=== PATIENT | male | born 1965 | race Caucasian/White ===

== ENCOUNTER 2018-03-23 17:43 | Observation (INO) | payer BC ==
[2018-03-23] MEDS ORDERED: Sodium Chloride 0.9% 1,000 ML IV ONE (17:46)
[2018-03-23] MEDS ORDERED: Aspirin 81 MG Tab.Chew PO ONE (17:46)
[2018-03-23] MEDS ORDERED: Nitroglycerin 0.4 MG Tab.SL SL PRN (17:46)
--- NOTE | 2018-03-23 17:50 | EDM.PDOC ---
ED HPI GENERAL MEDICAL PROBLEM - General Chief Complaint: Chest Pain Stated Complaint: CHEST PAIN, SHORTNESS OF BREATH Time Seen by Provider: 03/23/18 17:45 Source of Information: Reports: Patient History Limitations: Reports: No Limitations - History of Present Illness INITIAL COMMENTS - FREE TEXT/NARRATIVE: HISTORY AND PHYSICAL: History of present illness: Patient is a 52-year-old male who presents to the emergency room today with complaints of midsternal chest pain and shortness of breath. He states he was doing yardwork when he started to have shortness of breath, and generalized midsternal chest pain, intermittent tingling to "my upper body" and diaphoresis. He denies any fever, chills, cough or headache. He denies any abdominal pain, nausea, vomiting, diarrhea or constipation. States prior to this he was feeling well and had no concerns or complaints. Has been eating and drinking appropriately. Pain is very physically active; runs daily. He denies any previous history of cardiac disease. No history of smoking. No familial history of heart disease. Review of systems: As per history of present illness and below otherwise all systems reviewed and negative. Past medical history: As per history of present illness and as reviewed below otherwise noncontributory. Surgical history: As per history of present illness and as reviewed below otherwise noncontributory. Social history: No reported history of drug or alcohol abuse. Family history: As per history of present illness and as reviewed below otherwise noncontributory. Physical exam: General: Well-developed and well-nourished 52-year-old male. Alert and oriented. Mildly anxious, nontoxic appearing and in no acute distress. HEENT: Atraumatic, normocephalic, pupils equal and reactive bilaterally, negative for conjunctival pallor or scleral icterus, mucous membranes moist, throat clear, neck supple, nontender, trachea midline. No drooling or trismus noted. No meningeal signs Lungs: Clear to auscultation, breath sounds equal bilaterally, chest nontender. Heart: S1S2, regular rate and rhythm without overt murmur Abdomen: Soft, nondistended, nontender. Negative for masses or hepatosplenomegaly. Negative for costovertebral tenderness. Pelvis: Stable nontender. Genitourinary: Deferred. Rectal: Deferred. Skin: Intact, warm, dry. No lesions or rashes noted. Extremities: Atraumatic, negative for cords or calf pain. Neurovascular unremarkable. Neuro: Awake, alert, oriented. Cranial nerves II through XII unremarkable. Cerebellum unremarkable. Motor and sensory unremarkable throughout. Exam nonfocal. Notes: Pain 4/10. 1 tab Nitro given, dropped his blood pressure. Did not improve his pain. Fluids running. Morphine was offered, he declined. He is willing to take Toradol IV. Pain 3/10. Chest xray shows no evidence of pneumonia or infiltrate; normal. Pain is currently a 3/10, he will take the Morphine. Pain is 0/[address] Moss was consult did on this case. He is agreeable to keeping this patient for observation telemetry.. Diagnostics: CBC, CMP, troponin, EKG, chest x-ray Therapeutics: IV fluid, aspirin, nitroglycerin Impression: Chest Pain r/o [place] Dehydration Plan: Observation admission with telemetry Definitive disposition and diagnosis as appropriate pending reevaluation and review of above. Onset: Today Duration: Minutes: Location: Reports: Chest Chest Pain Score (Numeric/FACES): 4 - Related Data Allergies Allergy/AdvReac Type Severity Reaction Status Date / Time No Known Allergies Allergy Verified 03/23/18 17:48 Home Meds: Home Meds Canagliflozin [Invokana] 100 mg PO DAILY 02/20/14 [History] Lisinopril [Zestril] 20 mg PO DAILY 02/20/14 [History] SitaGLIPtin [Januvia] 100 mg PO DAILY 03/23/18 [History] Past Medical History HEENT History: Reports: Impaired Vision Other HEENT History: glasses Cardiovascular History: Reports: Hypertension Endocrine/Metabolic History: Reports: Diabetes, Type II - Past Surgical History Musculoskeletal Surgical History: Reports: Joint Replacement Social & Family History - Family History Family Medical History: Noncontributory - Living Situation & Occupation Living situation: Reports: Occupation: Employed ED ROS GENERAL - Review of Systems Review Of Systems: ROS reveals no pertinent complaints other than HPI. ED EXAM, GENERAL - Physical Exam Exam: See Below (See dictation) Course - Vital Signs Last Recorded V/S: Last Vital Signs Temp 97.2 F 03/23/18 17:45 Pulse 81 03/23/18 19:21 Resp 18 03/23/18 19:21 BP 110/69 03/23/18 19:21 Pulse Ox 95 06/03/18 19:21 - Orders/Labs/Meds Orders: Active Orders 24 hr Category Date Time Status Admission Status [Patient Status] [ADT] Stat ADT 03/23/18 19:16 Ordered Blood Glucose Check, Bedside [RC] TIDMEALS Care 03/23/18 19:37 Active Cardiac Monitoring [RC] . DIRECTED Care 03/23/18 19:21 Ordered EKG Documentation Completion [RC] STAT Care 03/23/18 17:46 Active Oxygen Therapy [RC] PRN Care 03/23/18 19:37 Active Up ad Juli [RC] ASDIRECTED Care 03/23/18 19:37 Active VTE/DVT Education [RC] PER UNIT ROUTINE Care 03/23/18 19:37 Active Vital Signs [RC] Q4H Care 03/23/18 19:37 Active [employer] Diet [DIET] Diet 03/23/18 Breakfast Active Chest 1V Frontal [CR] Stat Exams 03/23/18 17:46 Taken BASIC METABOLIC PANEL,BMP [CHEM] AM Lab 03/24/18 05:11 Ordered CBC WITH AUTO DIFF [HEME] AM Lab 03/24/18 05:11 Ordered TROPONIN I [CHEM] Q6H Lab 03/23/18 23:55 Ordered TROPONIN I [CHEM] Q6H Lab 03/24/18 05:55 Ordered Heparin Sodium Med 03/23/18 19:45 Active 5,000 units SUBCUT Q8H Insulin Aspart [NovoLOG] Med 03/24/18 07:30 Active See Protocol SUBCUT TIDAC Nitroglycerin [Nitrostat] Med 03/23/18 17:46 Active 0.4 mg SL Q5M PRN Sodium Chloride 0.9% [Normal Saline] 1,000 ml Med 03/23/18 19:45 Active IV ASDIRECTED Sequential Compression Device [OM.PC] Per Unit Routine Oth 03/23/18 19:38 Ordered Resuscitation Status Routine Resus Stat 03/23/18 19:37 Ordered Medication Orders Heparin Sodium (Porcine) (Heparin Sodium) 5,000 units SUBCUT Q8H J[facility] Sodium Chloride (Normal Saline) 1,000 mls @ 125 mls/hr IV ASDIRECTED JAYRO Insulin Aspart (Novolog) 0 unit SUBCUT TIDAC JAYRO; Protocol Nitroglycerin (Nitrostat) 0.4 mg SL Q5M PRN PRN Reason: Chest Pain Last Admin: 03/23/18 17:54 Dose: 0.4 mg Labs: Laboratory Tests 03/23/18 03/23/18 Range/Units 17:58 17:58 WBC 14.69 H (4.0-11.0) K/uL RBC 5.41 (4.50-5.90) M/uL Hgb 16.8 (13.0-17.0) g/dL Hct 47.1 (38.0-50.0) % MCV 87.1 (80.0-98.0) fL MCH 31.1 (27.0-32.0) pg MCHC 35.7 (31.0-37.0) g/dL RDW Std Deviation 40.5 (28.0-62.0) fl RDW Coeff of Jose 13 (11.0-15.0) % Plt Count 212 (150-400) K/uL MPV 10.90 (7.40-12.00) fL Neut % (Auto) 76.6 (48.0-80.0) % Lymph % (Auto) 11.6 L (16.0-40.0) % [place] % (Auto) 11.4 (0.0-15.0) % Eos % (Auto) 0.1 (0.0-7.0) % Baso % (Auto) 0.3 (0.0-1.5) % Neut # (Auto) 11.2 H (1.4-5.7) K/uL Lymph # (Auto) 1.7 (0.6-2.4) K/uL [place] # (Auto) 1.7 H (0.0-0.8) K/uL Eos # (Auto) 0.0 (0.0-0.7) K/uL Baso # (Auto) 0.1 (0.0-0.1) K/uL Nucleated RBC % 0.0 /100WBC Nucleated RBCs # 0 K/uL Sodium 133 L (136-148) mmol/L Potassium 4.2 (3.5-5.1) mmol/L Chloride 99 (98-107) mmol/L Carbon Dioxide 17.6 L (21.0-32.0) mmol/L BUN 36 H (7.0-18.0) mg/dL Creatinine 2.0 H (0.8-1.3) mg/dL Est Cr Clr Drug Dosing 49.09 mL/min Estimated GFR (MDRD) 35.0 ml/min Glucose 267 H (74-106) mg/dL Calcium 10.4 H (8.5-10.1) mg/dL Total Bilirubin 1.6 H (0.2-1.0) mg/dL AST 24 (15-37) IU/L ALT 30 (14-63) IU/L Alkaline Phosphatase 72 (46-116) U/L Troponin I < 0.050 (0.000-0.056) ng/mL Total Protein 7.7 (6.4-8.2) g/dL Albumin 4.6 (3.4-5.0) g/dL Globulin 3.1 (2.0-3.5) g/dL Albumin/Globulin Ratio 1.5 (1.3-2.8) Meds: Medications Generic Name Dose Route Start Last Admin Trade Name Freq PRN Reason Stop Dose Admin Heparin Sodium (Porcine) 5,000 units 03/23/18 19:45 Heparin Sodium SUBCUT Q8H [facility] Sodium Chloride 1,000 mls @ 125 mls/hr 03/23/18 19:45 Normal Saline IV ASDIRECTED [facility] Insulin Aspart 0 unit 03/24/18 07:30 Novolog SUBCUT TIDAC [facility] Protocol Nitroglycerin 0.4 mg 03/23/18 17:46 03/23/18 17:54 Nitrostat SL 0.4 mg Q5M PRN Administration Chest Pain Discontinued Medications Generic Name Dose Route Start Last Admin Trade Name Freq PRN Reason Stop Dose Admin Aspirin 324 mg 03/23/18 17:46 03/23/18 17:52 Aspirin PO 03/23/18 17:47 324 mg ONETIME ONE Administration Sodium Chloride 1,000 mls @ 999 mls/hr 03/23/18 17:46 03/23/18 17:54 Normal Saline IV 03/23/18 18:46 999 mls/hr STAT ONE Administration Ketorolac Tromethamine 30 mg 03/23/18 18:16 03/23/18 18:32 Toradol IVPUSH 03/23/18 18:17 30 mg ONETIME ONE Administration Morphine Sulfate 2 mg 03/23/18 18:02 03/23/18 18:19 Morphine IVPUSH 03/23/18 18:03 Not Given ONETIME ONE Morphine Sulfate 2 mg 03/23/18 19:16 03/23/18 19:19 Morphine IVPUSH 03/23/18 19:17 2 mg ONETIME ONE Administration Departure - Departure Time of Disposition: 19:42 Disposition: Refer to Observation Clinical Impression: Chest pain, rule out acute myocardial infarction, Dehydration Referrals: Perry Ring MD [Primary Care Provider] - Forms: ED Department Discharge - My Orders Last 24 Hours: My Active Orders 03/23/18 17:46 EKG Documentation Completion [RC] STAT Chest 1V Frontal [CR] Stat Nitroglycerin [Nitrostat] 0.4 mg SL Q5M PRN 03/23/18 19:16 Admission Status [Patient Status] [ADT] Stat 03/23/18 19:21 Cardiac Monitoring [RC] . DIRECTED - Assessment/Plan Last 24 Hours: My Active Orders 03/23/18 17:46 EKG Documentation Completion [RC] STAT Chest 1V Frontal [CR] Stat Nitroglycerin [Nitrostat] 0.4 mg SL Q5M PRN 03/23/18 19:16 Admission Status [Patient Status] [ADT] Stat 03/23/18 19:21 Cardiac Monitoring [RC] . DIRECTED
[2018-03-23] MEDS ORDERED: Morphine 2 MG/ML Syringe IVPUSH ONE ×2 (18:02→19:16)
[2018-03-23] MEDS ORDERED: Ketorolac 30 MG/ML SDV IVPUSH ONE (18:16)
[2018-03-23 19:04] LABS: CHLORIDE,CL 99 mmol/L (98-107); SODIUM,NA 133 mmol/L (136-148)
--- NOTE | 2018-03-23 19:43 | PCM.HP ---
H&P History of Present Illness - General Admit Problem/Dx: Admission Diagnosis/Problem Admission Diagnosis/Problem Chest pain, rule out acute myocardial infarction - History of Present Illness Initial Comments - Free Text/Narative: 52 yo male who presents with four hour history of chest pain. PAtient reports he developed substernal chest pressure with associated symptoms of shortness of breath and diaphoresis. The pain occured while he was exerting himself more than normal by digging post holes. Laying down made it worse. HE was seen in the ED and given ASA, nitro paste, and morphine which resolved his pain. Initial EKG and troponin were negative for signs of ischemia Chest Pain Score (Numeric/FACES): 4 - Related Data Allergies/Adverse Reactions: Allergies Allergy/AdvReac Type Severity Reaction Status Date / Time No Known Allergies Allergy Verified 03/23/18 17:48 Home Medications: Home Meds Canagliflozin [Invokana] 100 mg PO DAILY 02/20/14 [History] Lisinopril [Zestril] 20 mg PO DAILY 02/20/14 [History] SitaGLIPtin [Januvia] 100 mg PO DAILY 03/23/18 [History] Past Medical History HEENT History: Reports: Impaired Vision Other HEENT History: glasses Cardiovascular History: Reports: Hypertension Endocrine/Metabolic History: Reports: Diabetes, Type II - Past Surgical History Musculoskeletal Surgical History: Reports: Joint Replacement Social & Family History - Family History Family Medical History: Noncontributory - Tobacco Use Smoking Status *Q: Never Smoker - Caffeine Use Caffeine Use: Reports: None - Recreational Drug Use Recreational Drug Use: No - Living Situation & Occupation Living situation: Reports: Occupation: Employed H&P Review of Systems - Review of Systems: Review Of Systems: ROS reveals no pertinent complaints other than HPI. Exam - Vital Signs Vital Signs: Last Vital Signs Temp 36.2 C 03/23/18 17:45 Pulse 81 03/23/18 19:21 Resp 18 03/23/18 19:21 BP 110/69 03/23/18 19:21 Pulse Ox 95 03/23/18 19:21 Weight: 100.698 kg - Exam General: Alert, Oriented HEENT: Mucosa Moist & [place] Lungs: Clear to Auscultation, Normal Respiratory Effort Cardiovascular: Regular Rate, Regular Rhythm, Normal S1, Normal S2. No: Systolic Murmur, Diastolic Murmur GI/Abdominal Exam: Normal Bowel Sounds, Soft, Non-Tender, No Distention Extremities: Non-Tender, No Pedal Edema Skin: Warm, Dry, Intact Neurological: No: Focal Deficit - Patient Data Lab Results Last 24 hrs: Laboratory Results - last 24 hr 03/23/18 03/23/18 Range/Units 17:58 17:58 WBC 14.69 H (4.0-11.0) K/uL RBC 5.41 (4.50-5.90) M/uL Hgb 16.8 (13.0-17.0) g/dL Hct 47.1 (38.0-50.0) % MCV 87.1 (80.0-98.0) fL MCH 31.1 (27.0-32.0) pg MCHC 35.7 (31.0-37.0) g/dL RDW Std Deviation 40.5 (28.0-62.0) fl RDW Coeff of Jose 13 (11.0-15.0) % Plt Count 212 (150-400) K/uL MPV 10.90 (7.40-12.00) fL Neut % (Auto) 76.6 (48.0-80.0) % Lymph % (Auto) 11.6 L (16.0-40.0) % [place] % (Auto) 11.4 (0.0-15.0) % Eos % (Auto) 0.1 (0.0-7.0) % Baso % (Auto) 0.3 (0.0-1.5) % Neut # (Auto) 11.2 H (1.4-5.7) K/uL Lymph # (Auto) 1.7 (0.6-2.4) K/uL [place] # (Auto) 1.7 H (0.0-0.8) K/uL Eos # (Auto) 0.0 (0.0-0.7) K/uL Baso # (Auto) 0.1 (0.0-0.1) K/uL Nucleated RBC % 0.0 /100WBC Nucleated RBCs # 0 K/uL Sodium 133 L (136-148) mmol/L Potassium 4.2 (3.5-5.1) mmol/L Chloride 99 (98-107) mmol/L Carbon Dioxide 17.6 L (21.0-32.0) mmol/L BUN 36 H (7.0-18.0) mg/dL Creatinine 2.0 H (0.8-1.3) mg/dL Est Cr Clr Drug Dosing 49.09 mL/min Estimated GFR (MDRD) 35.0 ml/min Glucose 267 H (74-106) mg/dL Calcium 10.4 H (8.5-10.1) mg/dL Total Bilirubin 1.6 H (0.2-1.0) mg/dL AST 24 (15-37) IU/L ALT 30 (14-63) IU/L Alkaline Phosphatase 72 (46-116) U/L Troponin I < 0.050 (0.000-0.056) ng/mL Total Protein 7.7 (6.4-8.2) g/dL Albumin 4.6 (3.4-5.0) g/dL Globulin 3.1 (2.0-3.5) g/dL Albumin/Globulin Ratio 1.5 (1.3-2.8) Result Diagrams: 03/23/18 17:58 03/23/18 17:58 Problem List Initiated/Reviewed/Updated: Yes Orders Last 24hrs: Active Orders 24 hr Category Date Time Status Admission Status [Patient Status] [ADT] Stat ADT 03/23/18 19:16 Active Blood Glucose Check, Bedside [RC] TIDMEALS Care 03/23/18 19:37 Ordered Cardiac Monitoring [RC] . DIRECTED Care 03/23/18 19:21 Active EKG Documentation Completion [RC] STAT Care 03/23/18 17:46 Active Oxygen Therapy [RC] PRN Care 03/23/18 19:37 Ordered Up ad Juli [RC] ASDIRECTED Care 03/23/18 19:37 Ordered VTE/DVT Education [RC] PER UNIT ROUTINE Care 03/23/18 19:37 Ordered Vital Signs [RC] Q4H Care 03/23/18 19:37 Ordered [employer] [employer] Diet [DIET] Diet 03/23/18 Breakfast Ordered Chest 1V Frontal [CR] Stat Exams 03/23/18 17:46 Taken BASIC METABOLIC PANEL,BMP [CHEM] AM Lab 03/24/18 05:11 Ordered CBC WITH AUTO DIFF [HEME] AM Lab 03/24/18 05:11 Ordered TROPONIN I [CHEM] Q6H Lab 03/23/18 23:55 Ordered TROPONIN I [CHEM] Q6H Lab 03/24/18 05:55 Ordered Heparin Sodium Med 03/23/18 19:45 Ordered 5,000 units SUBCUT Q8H Insulin Aspart [NovoLOG] Med 03/24/18 07:30 Ordered See Protocol SUBCUT TIDAC Nitroglycerin [Nitrostat] Med 03/23/18 17:46 Active 0.4 mg SL Q5M PRN Sodium Chloride 0.9% @ 125 MLS/HR (1000ml) Med 03/23/18 19:45 Ordered Sodium Chloride 0.9% [Normal Saline] 1,000 ml IV ASDIRECTED Sequential Compression Device [OM.PC] Per Unit Routine Oth 03/23/18 19:38 Ordered Resuscitation Status Routine Resus Stat 03/23/18 19:37 Ordered Medication Orders Nitroglycerin (Nitrostat) 0.4 mg SL Q5M PRN PRN Reason: Chest Pain Last Admin: 03/23/18 17:54 Dose: 0.4 mg Assessment/Plan Comment:: 52 yo male who presents with chest pain.
[2018-03-23] MEDS ORDERED: Sodium Chloride 0.9% 1,000 ML IV SCH (19:45)
[2018-03-23] MEDS ORDERED: Heparin Sodium 5,000 Units/ML Vial SUBCUT SCH (19:45)
[2018-03-24 00:40] VITALS: BP 135/72
[2018-03-24] MEDS ORDERED: Insulin Aspart 100 Units/ML 3 ML Pen SUBCUT SCH (07:30)
--- NOTE | 2018-03-24 13:54 | CR ---
EXAM DATE: 03/23/18 PATIENT'S AGE: 52 Patient: RUDI CROCKER Facility: [place], [place] Site . Site : [id number] Study: XRay Chest [id number] 6:10:37 PM Ordering Physician: Doctor Toro Final Report: Indication: Chest pain Technique: Chest 1 view Comparison: None Findings/Impression: Cardiovascular and mediastinum: Heart size and vasculature are normal in caliber and appearance. Mediastinum is within normal limits. Lungs and pleural space: Lungs are clear. No sign of infiltrate or mass. No sign of pleural effusion. No pneumothorax. Bones and soft tissues: No significant findings. Dictated by Nola Feldman MD @ Mar 23 2018 6:18PM (Electronic Signature) Report Signed by Proxy. TIRSO
== END 2018-03-23 22:50 | disposition left against medical advice (07) ==
LOC: MW.ED 17:43 → MW.MS 19:16
PROVIDERS: ADMIT Internal Medicine; ATTEND Internal Medicine
DX: R07.2 Precordial pain (principal); I10 Essential (primary) hypertension; E11.9 Type 2 diabetes mellitus without complications; Z79.899 Other long term (current) drug therapy; Z79.84 Long term (current) use of oral hypoglycemic drugs
CPT/HCPCS: 36415; 71045; 80053; 84484; 85025; 93005; 96361; 96374; 96375; 99285; A9270; J1644; J1885; J2270; J7040

== ENCOUNTER 2018-05-05 00:02 | Emergency (ER) | payer BC ==
[2018-05-05 00:13] VITALS: BP 129/62
--- NOTE | 2018-05-05 00:19 | EDM.PDOC ---
ED HPI GENERAL MEDICAL PROBLEM - General Chief Complaint: ENT Problem Stated Complaint: PAIN LT EAR Time Seen by Provider: 05/05/18 00:13 - History of Present Illness INITIAL COMMENTS - FREE TEXT/NARRATIVE: HISTORY AND PHYSICAL: History of present illness: The patient is a 52-year-old male who follows with Dr. Perry Mead and presents with complaints of left ear pain without any drainage that started earlier today. Patient denies any fevers chills sinus congestion throat pain shortness of breath nausea or vomiting and has not been aggressively cleaning the area or had any trauma to the area. He describes the pain as an aching pain that did not start suddenly but was a gradual onset. Review of systems: As per history of present illness and below otherwise all systems reviewed and negative. Past medical history: As per history of present illness and as reviewed below otherwise noncontributory. Surgical history: As per history of present illness and as reviewed below otherwise noncontributory. Social history: No reported history of drug or alcohol abuse. Family history: As per history of present illness and as reviewed below otherwise noncontributory. Physical exam: General: Well-developed well-nourished man who is nontoxic and vital signs are reviewed by me HEENT: Atraumatic, normocephalic, pupils reactive, negative for conjunctival pallor or scleral icterus, mucous membranes moist, throat clear, neck supple, nontender, trachea midline. No cervical adenopathy or nuchal rigidity and no sinus tenderness. TMs are difficult to see bilaterally and there is dullness and there is cerumen in external canal on the right. The left external canal has edema and debris as well as swelling. There is no mastoid tenderness. Lungs: Clear to auscultation, breath sounds equal bilaterally, chest nontender. Heart: S1S2, regular and rhythm no overt murmurs Abdomen: Soft, nondistended, nontender. NABS Pelvis: Deferred Genitourinary: Deferred. Rectal: Deferred. Extremities: Atraumatic, negative for cords or calf pain. Neurovascular unremarkable. Neuro: Awake, alert, oriented. Cranial nerves II through XII unremarkable. Cerebellum unremarkable. Motor and sensory unremarkable throughout. Exam nonfocal. Diagnostics: [] Therapeutics: [] Impression: Otitis externa left Definitive disposition and diagnosis as appropriate pending reevaluation and review of above. Left Ear Pain Score (Numeric/FACES): 6 - Related Data Allergies Allergy/AdvReac Type Severity Reaction Status Date / Time No Known Allergies Allergy Verified 03/23/18 17:48 Home Meds: Home Meds Canagliflozin [Invokana] 100 mg PO DAILY 02/20/14 [History] Lisinopril [Zestril] 20 mg PO DAILY 02/20/14 [History] SitaGLIPtin [Januvia] 100 mg PO DAILY 03/23/18 [History] Past Medical History HEENT History: Reports: Impaired Vision Other HEENT History: glasses Cardiovascular History: Reports: Hypertension Endocrine/Metabolic History: Reports: Diabetes, Type II - Past Surgical History Musculoskeletal Surgical History: Reports: Joint Replacement Social & Family History - Family History Family Medical History: Noncontributory - Tobacco Use Smoking Status *Q: Never Smoker - Caffeine Use Caffeine Use: Reports: None - Living Situation & Occupation Living situation: Reports: Occupation: Employed ED ROS GENERAL - Review of Systems Review Of Systems: ROS reveals no pertinent complaints other than HPI. ED EXAM, GENERAL - Physical Exam Exam: See Below (See dictation) Course - Vital Signs Last Recorded V/S: Last Vital Signs Temp 36.4 C 05/05/18 00:10 Pulse 82 05/05/18 00:10 Resp 18 05/05/18 00:10 BP 129/62 05/05/18 00:10 Pulse Ox 99 05/05/18 00:10 Departure - Departure Time of Disposition: 00:18 Disposition: Home, Self-Care 01 Condition: Good Clinical Impression: Otitis externa Qualifiers: Otitis externa type: unspecified type Chronicity: acute Laterality: left Qualified Code(s): H60.502 - Unspecified acute noninfective otitis externa, left ear - Discharge Information Referrals: PCP,None [Primary Care Provider] - Additional Instructions: The following information is given to patients seen in the emergency department who are being discharged to home. This information is to outline your options for follow-up care. We provide all patients seen in our emergency department with a follow-up referral. The need for follow-up, as well as the timing and circumstances, are variable depending upon the specifics of your emergency department visit. If you don't have a primary care physician on staff, we will provide you with a referral. We always advise you to contact your personal physician following an emergency department visit to inform them of the circumstance of the visit and for follow-up with them and/or the need for any referrals to a consulting specialist. The emergency department will also refer you to a specialist when appropriate. This referral assures that you have the opportunity for followup care with a specialist. All of these measure are taken in an effort to provide you with optimal care, which includes your followup. Under all circumstances we always encourage you to contact your private physician who remains a resource for coordinating your care. When calling for followup care, please make the office aware that this follow-up is from your recent emergency room visit. If for any reason you are refused follow-up, please contact the [facility] emergency department at and ask to speak to the emergency department charge nurse. [address] [place] [address] Please put the Cortisporin you have received in her left ear as directed via [employer]. Use [id number] Tylenol and ibuprofen for pain and call and follow-up with Dr. Ring in the clinic in the next few days for reevaluation further care. Please nothing in the ear except the antibiotic medication and return to ER as needed and as discussed
== END 2018-05-05 00:30 | disposition home or self-care (01) ==
LOC: MW.ED 00:02
DX: H60.502 Unspecified acute noninfective otitis externa, left ear (principal); I10 Essential (primary) hypertension; E11.9 Type 2 diabetes mellitus without complications; Z79.899 Other long term (current) drug therapy
CPT/HCPCS: 99282

== ENCOUNTER 2020-08-29 07:06 | Observation (INO) | payer BC ==
--- NOTE | 2020-08-29 07:21 | EDM.PDOC ---
ED HPI GENERAL MEDICAL PROBLEM - General Chief Complaint: Genitourinary Problem Stated Complaint: BLEEDING; BELIEVES HE HAS A BLOCKAGE Time Seen by Provider: 08/29/20 07:09 Source of Information: Reports: Patient History Limitations: Reports: No Limitations - History of Present Illness INITIAL COMMENTS - FREE TEXT/NARRATIVE: 55-year-old male no known past medical history presents for gross hematuria and dysuria. Patient last night noted that he was having a mild burning sensation with urination then that he was urinating more frequently than normal. He notes that he had to get up several times to the middle of the night to urinate, with feeling of incomplete emptying. This is not usual for him. Around 5 AM he woke up and had grossly bloody urine with worsening pain symptoms. Notes that he is using the bathroom every 5 to 15 minutes, incomplete emptying, bright red blood per urine. Denies any back pain, does note a feeling of bladder fullness and burning with urination. No history of tobacco use. No cancer history. No history of similar. Pelvic Pain Score (Numeric/FACES): 10 - Related Data Allergies Allergy/AdvReac Type Severity Reaction Status Date / Time No Known Allergies Allergy Verified 08/29/20 07:21 Home Meds: Home Meds Canagliflozin [Invokana] 100 mg PO DAILY 02/20/14 [History] Lisinopril [Zestril] 20 mg PO DAILY 02/20/14 [History] SitaGLIPtin [Januvia] 100 mg PO DAILY 03/23/18 [History] Past Medical History HEENT History: Reports: Impaired Vision Other HEENT History: glasses Cardiovascular History: Reports: Hypertension Endocrine/Metabolic History: Reports: Diabetes, Type II - Past Surgical History Musculoskeletal Surgical History: Reports: Joint Replacement Social & Family History - Family History Family Medical History: Noncontributory - Caffeine Use Caffeine Use: Reports: None - Living Situation & Occupation Living situation: Reports: Occupation: Employed ED ROS GENERAL - Review of Systems Review Of Systems: Comprehensive ROS is negative, except as noted in HPI. ED EXAM, GENERAL - Physical Exam Exam: See Below Exam Limited By: No Limitations General Appearance: Alert, WD/WN, No Apparent Distress Throat/Mouth: Normal Voice, No Airway Compromise Head: Atraumatic, Normocephalic Neck: Normal Inspection Respiratory/Chest: No Respiratory Distress, Lungs Clear, Normal Breath Sounds, No Accessory Muscle Use Cardiovascular: Normal Peripheral Pulses, Regular Rate, Rhythm GI/Abdominal: Soft, Non-Tender, No Mass Back Exam: No: CVA Tenderness (L), CVA Tenderness (R) Neurological: Alert, Normal Gait Psychiatric: Normal Affect, Normal Mood Skin Exam: Warm, Dry, Intact Course - Vital Signs Last Recorded V/S: Last Vital Signs Temp 98.3 F 08/29/20 07:21 Pulse 102 H 08/29/20 07:21 Resp 18 08/29/20 07:21 BP 120/84 08/29/20 07:21 Pulse Ox 98 08/29/20 07:21 - Orders/Labs/Meds Orders: Active Orders 24 hr Category Date Time Status Patient Status [ADT] Routine ADT 08/29/20 09:19 Ordered Insert Garcia Catheter [Insert Urinary Catheter] [OM.PC] Care 08/29/20 07:30 Ordered Q24H Urinary Catheter Assessment [RC] ASDIRECTED Care 08/29/20 07:24 Active Sodium Chloride 0.9% [Saline Flush] Med 08/29/20 07:22 Active 10 ml FLUSH ASDIRECTED PRN Sodium Chloride 0.9% [Saline Flush] Med 08/29/20 07:22 Active 2.5 ml FLUSH ASDIRECTED PRN Saline Lock Insert [OM.PC] Stat Oth 08/29/20 07:22 Ordered Medication Orders Sodium Chloride (Saline Flush) 10 ml FLUSH ASDIRECTED PRN PRN Reason: Keep Vein Open Last Admin: 08/29/20 07:34 Dose: 10 ml Documented by: [email or web address] Sodium Chloride (Saline Flush) 2.5 ml FLUSH ASDIRECTED PRN PRN Reason: Keep Vein Open Last Admin: 08/29/20 07:34 Dose: 2.5 ml Documented by: [email or web address] Labs: Laboratory Tests 08/29/20 08/29/20 08/29/20 Range/Units 07:15 07:20 07:20 WBC 19.53 H (4.0-11.0) K/uL RBC 5.24 (4.50-5.90) M/uL Hgb 16.1 (13.0-17.0) g/dL Hct 48.3 (38.0-50.0) % MCV 92.2 (80.0-98.0) fL MCH 30.7 (27.0-32.0) pg MCHC 33.3 (31.0-37.0) g/dL RDW Std Deviation 44.7 (28.0-62.0) fl RDW Coeff of Jose 13 (11.0-15.0) % Plt Count 203 (150-400) K/uL MPV 10.90 (7.40-12.00) fL Neut % (Auto) 82.0 H (48.0-80.0) % Lymph % (Auto) 8.9 L (16.0-40.0) % [place] % (Auto) 8.7 (0.0-15.0) % Eos % (Auto) 0.2 (0.0-7.0) % Baso % (Auto) 0.2 (0.0-1.5) % Neut # (Auto) 16.1 H (1.4-5.7) K/uL Lymph # (Auto) 1.7 (0.6-2.4) K/uL [place] # (Auto) 1.7 H (0.0-0.8) K/uL Eos # (Auto) 0.0 (0.0-0.7) K/uL Baso # (Auto) 0.0 (0.0-0.1) K/uL Nucleated RBC % 0.0 /100WBC Nucleated RBCs # 0 K/uL Sodium 134 L (136-148) mmol/L Potassium 4.2 (3.5-5.1) mmol/L Chloride 101 (98-107) mmol/L Carbon Dioxide 22.8 (21.0-32.0) mmol/L BUN 23 H (7.0-18.0) mg/dL Creatinine 1.2 (0.8-1.3) mg/dL Est Cr Clr Drug Dosing 81.17 mL/min Estimated GFR (MDRD) > 60.0 ml/min Glucose 220 H (74-106) mg/dL Calcium 9.0 (8.5-10.1) mg/dL Total Bilirubin 1.2 H (0.2-1.0) mg/dL AST 17 (15-37) IU/L ALT 30 (14-63) IU/L Alkaline Phosphatase 82 (46-116) U/L Total Protein 7.8 (6.4-8.2) g/dL Albumin 4.3 (3.4-5.0) g/dL Globulin 3.5 (2.6-4.0) g/dL Albumin/Globulin Ratio 1.2 (0.9-1.6) Urine Color RED Urine Appearance CLOUDY Urine pH 5.0 (5.0-8.0) Ur Specific [place] 1.025 (1.001-1.035) Urine Protein 100 H (NEGATIVE) mg/dL Urine Glucose (UA) >=1000 (NEGATIVE) mg/dL Urine Ketones TRACE H (NEGATIVE) mg/dL Urine Occult Blood LARGE H (NEGATIVE) Urine Nitrite POSITIVE H (NEGATIVE) Urine Bilirubin NEGATIVE (NEGATIVE) Urine Urobilinogen 2.0 H (<2.0) EU/dL Ur Leukocyte Esterase MODERATE H (NEGATIVE) Urine RBC TOO NUMEROUS TO CT (0-2/HPF) Urine WBC 8-12 (0-5/HPF) Ur Epithelial Cells RARE (NONE-FEW) Urine Bacteria 1+ H (NEGATIVE) Meds: Medications Generic Name Dose Route Start Last Admin Trade Name Mick PRN Reason Stop Dose Admin Sodium Chloride 10 ml 08/29/20 07:22 08/29/20 07:34 Saline Flush FLUSH 10 ml ASDIRECTED PRN Administration Keep Vein Open Sodium Chloride 2.5 ml 08/29/20 07:22 08/29/20 07:34 Saline Flush FLUSH 2.5 ml ASDIRECTED PRN Administration Keep Vein Open Discontinued Medications Generic Name Dose Route Start Last Admin Trade Name Mick PRN Reason Stop Dose Admin Sodium Chloride 1,000 mls @ 999 mls/hr 08/29/20 07:22 08/29/20 07:34 Normal Saline IV 08/29/20 08:22 999 mls/hr .Bolus ONE Administration Ceftriaxone Sodium/Dextrose 1 50 mls @ 100 mls/hr 08/29/20 07:47 08/29/20 08:22 gm/ Premix IV 08/29/20 08:16 100 mls/hr ONETIME ONE Administration Morphine Sulfate 4 mg 08/29/20 07:22 08/29/20 07:34 Morphine IVPUSH 08/29/20 07:23 4 mg ONETIME ONE Administration Ondansetron HCl 4 mg 08/29/20 07:22 08/29/20 07:34 Zofran IVPUSH 08/29/20 07:23 4 mg ONETIME ONE Administration - Re-Assessments/Exams Free Text/Narrative Re-Assessment/Exam: 08/29/20 07:44 Patient presents with gross hematuria, feelings of incomplete voids. Will get post residual bladder scan. We will likely place irrigation catheter and irrigate. Will get basic labs to ensure good renal function, check for signs of infection. Will get CT abdomen pelvis without contrast to look for signs of hydronephrosis, renal stone, bladder mass, cystitis. We will follow up results and disposition accordingly. 08/29/20 07:54 UA with evidence of UTI, CBC with leukocytosis. 1 times dose Rocephin ordered while work-up is commencing. 08/29/20 08:42 CT does not reveal etiology of patient's gross hematuria. No obstructive uropathy noted on imaging. Garcia catheter is in place and draining well, 500 cc of clear urine draining after irrigation. Will consult urology for disposition recommendations. Urology locally is unavailable at this time, will call [place] [facility] call. 08/29/20 08:57 [place] [facility] line Called, awaiting callback from urology 08/29/20 09:[address] Myers urology at [facility]; she recommends admission for IV antibiotics and urology f/u when stable for discharge. 08/29/20 09:19 Dr. Parra agrees to admit patient to her service Departure - Departure Time of Disposition: 09:20 Disposition: Admitted As Inpatient 64 Condition: Good Clinical Impression: UTI, Urinary tract infectious disease, Hematuria syndrome - Discharge Information Referrals: Perry Ring MD [Primary Care Provider] - Forms: ED Department Discharge Sepsis Event Note (ED) - Focused Exam Vital Signs: Vital Signs Temp Pulse Resp BP Pulse Ox 08/29/20 07:21 98.3 F 102 H 18 120/84 98 - My Orders Last 24 Hours: My Active Orders 08/29/20 07:22 Sodium Chloride 0.9% [Saline Flush] 10 ml FLUSH ASDIRECTED PRN Sodium Chloride 0.9% [Saline Flush] 2.5 ml FLUSH ASDIRECTED PRN Saline Lock Insert [OM.PC] Stat 08/29/20 07:24 Urinary Catheter Assessment [RC] ASDIRECTED 08/29/20 07:30 Insert Garcia Catheter [Insert Urinary Catheter] [OM.PC] Q24H 08/29/20 09:19 Patient Status [ADT] Routine - Assessment/Plan Last 24 Hours: My Active Orders 08/29/20 07:22 Sodium Chloride 0.9% [Saline Flush] 10 ml FLUSH ASDIRECTED PRN Sodium Chloride 0.9% [Saline Flush] 2.5 ml FLUSH ASDIRECTED PRN Saline Lock Insert [OM.PC] Stat 08/29/20 07:24 Urinary Catheter Assessment [RC] ASDIRECTED 08/29/20 07:30 Insert Garcia Catheter [Insert Urinary Catheter] [OM.PC] Q24H 08/29/20 09:19 Patient Status [ADT] Routine
[2020-08-29] MEDS ORDERED: Ondansetron 4 MG/2 ML SDV IVPUSH ONE (07:22)
[2020-08-29] MEDS ORDERED: Sodium Chloride 0.9% 2.5 ML Syringe FLUSH PRN ×2 (07:22→12:40)
[2020-08-29] MEDS ORDERED: Morphine 4 MG/ML Syringe IVPUSH ONE (07:22)
[2020-08-29] MEDS ORDERED: Sodium Chloride 0.9% 10 ML Syringe FLUSH PRN (07:22)
[2020-08-29] MEDS ORDERED: Sodium Chloride 0.9% 1,000 ML IV ONE (07:22)
[2020-08-29] MEDS ORDERED: cefTRIAXone 1 GM in Premix Bag 1 BAG IV ONE (07:47)
[2020-08-29 07:50] LABS: BLOOD UREA NITROGEN,BUN 23 mg/dL (7.0-18.0); CARBON DIOXIDE,CO2 22.8 mmol/L (21.0-32.0); CHLORIDE,CL 101 mmol/L (98-107); GLUCOSE RANDOM 220 mg/dL (74-106); POTASSIUM,K 4.2 mmol/L (3.5-5.1); SODIUM,NA 134 mmol/L (136-148)
--- NOTE | 2020-08-29 08:34 | CT ---
INDICATION: Gross hematuria COMPARISON: None TECHNIQUE: CT examination of the abdomen and pelvis was performed without intravenous contrast. Thin section axial images were obtained from the lung bases through the pubic symphysis. Oral contrast was not administered. Please note that all CT scans at this facility use dose modulation, iterative reconstruction, and/or weight-based dosing when appropriate to reduce radiation dose to as low as reasonably achievable. FINDINGS: LUNG BASES: The lung bases as visualized appear normal.The heart size is normal at the lung bases. There are calcifications associated with the heart that are likely vascular and valvular. LIVER/BILIARY SYSTEM:The liver is normal in size and configuration given the lack of intravenous contrast. There is no visible focal mass and there is no intra- or extra hepatic biliary ductal dilatation.The gall bladder appears normal. ADRENALS: Normal non-contrast appearance KIDNEYS, URETERS and BLADDER:The kidneys are normal in size. There are no calculi on the left. A mid to upper pole calculus on the right is identified measuring about 3 millimeters. No evidence of current or recent obstructive uropathy. No abnormal calcification within the bladder. A Garcia catheter ends within the bladder which is decompressed. The prostate is enlarged. SPLEEN:Normal non-contrast appearance. PANCREAS: Normal non-contrast appearance. RETROPERITONEUM and MESENTERY: There is no mass, adenopathy or aortic aneurysm. GASTROINTESTINAL SYSTEM: There is no evidence of diverticulitis, colitis, mechanical obstruction, or appendicitis. The small bowel as visualized appears normal.Fecal retention. Diverticulosis PELVIS: No mass, adenopathy or free fluid.Incidental seminal vesicle calcifications which is often seen in diabetics. OSSEOUS STRUCTURES and ABDOMINAL WALL: Grade 1 spondylolytic spondylolisthesis of L5 on S1. Degenerative changes.Small fat containing inguinal hernias. OTHER: No free fluid or free air. IMPRESSION: 1. There is right-sided nephrolithiasis but there is no finding of current or recent obstructive uropathy. The etiology of the patient`s gross hematuria is not directly visible on this exam. 2. Other incidental nonacute appearing findings as discussed above Please note that all CT scans at this facility use dose modulation, iterative reconstruction, and/or weight-based dosing when appropriate to reduce radiation dose to as low as reasonably achievable. Dictated by Kain Gaytan MD @ Aug 29 2020 8:21AM Signed by Dr. Kain Gaytan @ Aug 29 2020 8:31AM
[2020-08-29] MEDS ORDERED: oxyCODONE 5 MG Tab PO PRN (12:37)
[2020-08-29] MEDS ORDERED: Ondansetron 4 MG/2 ML SDV IVPUSH PRN (12:37)
[2020-08-29] MEDS ORDERED: Acetaminophen 325 MG Tab PO PRN (12:37)
[2020-08-29] MEDS: Sodium Chloride 0.9% 1,000 ML IV SCH ×2 (13:18→22:51)
[2020-08-29] MEDS: Levofloxacin/Dextrose 5%-Water 750 MG in Premix Bag 1 BAG IV SCH (13:23)
--- NOTE | 2020-08-29 13:45 | PCM.HP.2 ---
H&P History of Present Illness - General Date of Service: 08/29/20 Admit Problem/Dx: Admission Diagnosis/Problem Admission Diagnosis/Problem Hematuria due to cystitis Source of Information: Patient History Limitations: Reports: No Limitations - History of Present Illness Initial Comments - Free Text/Narative: This 55-year-old male with past medical history of HTN DM type II presented to the ER with complaints of hematuria that started this morning. He reports that last evening he started having urinary urgency and frequency along with dysuria. He felt like he was waking up quite a bit overnight to urinate but then only urinating a small amount. This morning he felt some worsening burning and had significant hematuria on urination. He also felt as though he had to urinate but was not able to empty completely. He denies any fevers but does report some chills this morning. He reports this is never happened in the past and denies any issues with prostate or urination previously. He denies any rectal pain or pressure. Denies any family history of prostate cancer or prostate issues. He denies any chest pain or shortness of breath no abdominal pain. No diarrhea or constipation. Denies any focal neurologic deficits. Denies any tobacco use no alcohol use and no recreational drug use. In the ER leukocytosis noted at 19,530 BUN slightly elevated at 23 cCr 1.2, glucose elevated at 220. CT abdomen pelvis revealed right-sided nephrolithiasis but no findings of current or recent obstructive uropathy prostate is enlarged no etiology for patient's gross hematuria. He was started on Rocephin and was given normal saline 1 L bolus in ER. Garcia catheter with continuous bladder irrigation was started. UA revealed large blood positive nitrites moderate leukocyte esterase many RBCs and +1 bacteria. Covid swab was negative. He was slightly tachycardic with heart rates in low 100s blood pressure stable at 120/84 and afebrile. He will be admitted secondary to sepsis and complicated UTI possible prostatitis. PCP, Dr. Ring Pelvic Pain Score (Numeric/FACES): 10 - Related Data Allergies/Adverse Reactions: Allergies Allergy/AdvReac Type Severity Reaction Status Date / Time No Known Allergies Allergy Verified 08/29/20 13:37 Home Medications: Home Meds Canagliflozin [Invokana] 300 mg PO DAILY 02/20/14 [History] Lisinopril [Zestril] 20 mg PO BID 02/20/14 [History] SitaGLIPtin [Januvia] 100 mg PO DAILY 03/23/18 [History] Past Medical History HEENT History: Reports: Impaired Vision Other HEENT History: glasses Cardiovascular History: Reports: Hypertension. Denies: Afib, Blood Clots/VTE/DVT, CAD, High Cholesterol Respiratory History: Reports: None. Denies: COPD, Sleep Apnea, SOB Gastrointestinal History: Reports: None. Denies: GI Bleed Genitourinary History: Reports: None. Denies: Urinary Incontinence, UTI, Recurrent Musculoskeletal History: Reports: Arthritis (Right ankle) Neurological History: Reports: None. Denies: CVA, TIA Psychiatric History: Reports: None Endocrine/Metabolic History: Reports: Diabetes, Type II - Past Surgical History Cardiovascular Surgical History: Reports: None GI Surgical History: Reports: None Neurological Surgical History: Reports: None Musculoskeletal Surgical History: Reports: Joint Replacement Social & Family History - Family History Family Medical History: Noncontributory : Reports: UTI, Recurrent (Mother). Denies: Renal Calculus Oncologic: Reports: None - Tobacco Use Tobacco Use Status *Q: Never Tobacco User - Caffeine Use Caffeine Use: Reports: None - Recreational Drug Use Recreational Drug Use: No - Living Situation & Occupation Living situation: Reports: Occupation: Employed H&P Review of Systems - Review of Systems: Review Of Systems: See Below General: Reports: Chills. Denies: Malaise, Weakness HEENT: Reports: No Symptoms. Denies: Headaches, Sinus Congestion, Sore Throat Pulmonary: Reports: No Symptoms. Denies: Shortness of Breath Cardiovascular: Reports: No Symptoms. Denies: Chest Pain Gastrointestinal: Reports: No Symptoms. Denies: Abdominal Pain, Black Stool, Bloody Stool, Nausea, Vomiting Genitourinary: Reports: Dysuria, Frequency, Burning, Urgency, Retention. Denies: Incontinence, Discharge, Flank Pain Musculoskeletal: Reports: No Symptoms. Denies: Back Pain Skin: Reports: No Symptoms Psychiatric: Reports: No Symptoms Neurological: Reports: No Symptoms Hematologic/Lymphatic: Reports: No Symptoms Immunologic: Reports: No Symptoms Exam - Exam Exam: See Below - Vital Signs Vital Signs: Last Vital Signs Temp 98.3 F 08/29/20 07:21 Pulse 102 H 08/29/20 07:21 Resp 18 08/29/20 07:21 BP 120/84 08/29/20 07:21 Pulse Ox 98 08/29/20 07:21 Weight: 99.79 kg - Exam Quality Assessment: DVT Prophylaxis (SCDs). No: Supplemental Oxygen General: Alert, Oriented, Cooperative HEENT: Conjunctiva Clear, Mucosa Moist & [place], Posterior Pharynx Clear Neck: Supple, Trachea Midline Lungs: Clear to Auscultation, Normal Respiratory Effort Cardiovascular: Regular Rate, Regular Rhythm, Normal S1, Normal S2. No: Systolic Murmur GI/Abdominal Exam: Normal Bowel Sounds, Soft, Non-Tender (Male) Exam: Normal Inspection. No: Normal Prostate (Prostate is enlarged nontender but firm to palpation), Testicular Tenderness (L), Testicular Ten derness (R), Urethral Discharge Rectal (Males) Exam: Normal Exam, Normal Rectal Tone Skin: Warm, Dry, Intact Neuro Extensive - Mental Status: Alert, Oriented x3 Psychiatric: Alert, Normal Affect, Normal Mood - Patient Data Lab Results Last 24 hrs: Laboratory Results - last 24 hr 08/29/20 08/29/20 08/29/20 Range/Units 07:15 07:20 07:20 WBC 19.53 H (4.0-11.0) K/uL RBC 5.24 (4.50-5.90) M/uL Hgb 16.1 (13.0-17.0) g/dL Hct 48.3 (38.0-50.0) % MCV 92.2 (80.0-98.0) fL MCH 30.7 (27.0-32.0) pg MCHC 33.3 (31.0-37.0) g/dL RDW Std Deviation 44.7 (28.0-62.0) fl RDW Coeff of Jose 13 (11.0-15.0) % Plt Count 203 (150-400) K/uL MPV 10.90 (7.40-12.00) fL Neut % (Auto) 82.0 H (48.0-80.0) % Lymph % (Auto) 8.9 L (16.0-40.0) % Stanton % (Auto) 8.7 (0.0-15.0) % Eos % (Auto) 0.2 (0.0-7.0) % Baso % (Auto) 0.2 (0.0-1.5) % Neut # (Auto) 16.1 H (1.4-5.7) K/uL Lymph # (Auto) 1.7 (0.6-2.4) K/uL Stanton # (Auto) 1.7 H (0.0-0.8) K/uL Eos # (Auto) 0.0 (0.0-0.7) K/uL Baso # (Auto) 0.0 (0.0-0.1) K/uL Nucleated RBC % 0.0 /100WBC Nucleated RBCs # 0 K/uL Sodium 134 L (136-148) mmol/L Potassium 4.2 (3.5-5.1) mmol/L Chloride 101 (98-107) mmol/L Carbon Dioxide 22.8 (21.0-32.0) mmol/L BUN 23 H (7.0-18.0) mg/dL Creatinine 1.2 (0.8-1.3) mg/dL Est Cr Clr Drug Dosing 81.17 mL/min Estimated GFR (MDRD) > 60.0 ml/min Glucose 220 H (74-106) mg/dL Calcium 9.0 (8.5-10.1) mg/dL Total Bilirubin 1.2 H (0.2-1.0) mg/dL AST 17 (15-37) IU/L ALT 30 (14-63) IU/L Alkaline Phosphatase 82 (46-116) U/L Total Protein 7.8 (6.4-8.2) g/dL Albumin 4.3 (3.4-5.0) g/dL Globulin 3.5 (2.6-4.0) g/dL Albumin/Globulin Ratio 1.2 (0.9-1.6) Urine Color RED Urine Appearance CLOUDY Urine pH 5.0 (5.0-8.0) Ur Specific [place] 1.025 (1.001-1.035) Urine Protein 100 H (NEGATIVE) mg/dL Urine Glucose (UA) >=1000 (NEGATIVE) mg/dL Urine Ketones TRACE H (NEGATIVE) mg/dL Urine Occult Blood LARGE H (NEGATIVE) Urine Nitrite POSITIVE H (NEGATIVE) Urine Bilirubin NEGATIVE (NEGATIVE) Urine Urobilinogen 2.0 H (<2.0) EU/dL Ur Leukocyte Esterase MODERATE H (NEGATIVE) Urine RBC TOO NUMEROUS TO CT (0-2/HPF) Urine WBC 8-12 (0-5/HPF) Ur Epithelial Cells RARE (NONE-FEW) Urine Bacteria 1+ H (NEGATIVE) SARS-CoV-2 RNA (TIGIST) (NEGATIVE) 08/29/20 Range/Units 10:05 WBC (4.0-11.0) K/uL RBC (4.50-5.90) M/uL Hgb (13.0-17.0) g/dL Hct (38.0-50.0) % MCV (80.0-98.0) fL MCH (27.0-32.0) pg MCHC (31.0-37.0) g/dL RDW Std Deviation (28.0-62.0) fl RDW Coeff of Jose (11.0-15.0) % Plt Count (150-400) K/uL MPV (7.40-12.00) fL Neut % (Auto) (48.0-80.0) % Lymph % (Auto) (16.0-40.0) % Stanton % (Auto) (0.0-15.0) % Eos % (Auto) (0.0-7.0) % Baso % (Auto) (0.0-1.5) % Neut # (Auto) (1.4-5.7) K/uL Lymph # (Auto) (0.6-2.4) K/uL Stanton # (Auto) (0.0-0.8) K/uL Eos # (Auto) (0.0-0.7) K/uL Baso # (Auto) (0.0-0.1) K/uL Nucleated RBC % /100WBC Nucleated RBCs # K/uL Sodium (136-148) mmol/L Potassium (3.5-5.1) mmol/L Chloride (98-107) mmol/L Carbon Dioxide (21.0-32.0) mmol/L BUN (7.0-18.0) mg/dL Creatinine (0.8-1.3) mg/dL Est Cr Clr Drug Dosing mL/min Estimated GFR (MDRD) ml/min Glucose (74-106) mg/dL Calcium (8.5-10.1) mg/dL Total Bilirubin (0.2-1.0) mg/dL AST (15-37) IU/L ALT (14-63) IU/L Alkaline Phosphatase (46-116) U/L Total Protein (6.4-8.2) g/dL Albumin (3.4-5.0) g/dL Globulin (2.6-4.0) g/dL Albumin/Globulin Ratio (0.9-1.6) Urine Color Urine Appearance Urine pH (5.0-8.0) Ur Specific [place] (1.001-1.035) Urine Protein (NEGATIVE) mg/dL Urine Glucose (UA) (NEGATIVE) mg/dL Urine Ketones (NEGATIVE) mg/dL Urine Occult Blood (NEGATIVE) Urine Nitrite (NEGATIVE) Urine Bilirubin (NEGATIVE) Urine Urobilinogen (<2.0) EU/dL Ur Leukocyte Esterase (NEGATIVE) Urine RBC (0-2/HPF) Urine WBC (0-5/HPF) Ur Epithelial Cells (NONE-FEW) Urine Bacteria (NEGATIVE) SARS-CoV-2 RNA (TIGIST) NEGATIVE (NEGATIVE) Result Diagrams: 08/29/20 07:20 08/29/20 07:20 Sepsis Event Note - Evaluation Sepsis Screening Result: No Definite Risk - Focused Exam Vital Signs: Vital Signs Temp Pulse Resp BP Pulse Ox 08/29/20 07:21 98.3 F 102 H 18 120/84 98 - Problem List (1) Sepsis SNOMED Code(s): 74153870 ICD Code: A41.9 - SEPSIS, UNSPECIFIED ORGANISM Status: Acute Current Visit: Yes Qualifiers: Sepsis type: sepsis due to unspecified organism Sepsis acute organ dysfunction status: without acute organ dysfunction Qualified Code(s): A41.9 - Sepsis, unspecified organism (2) Prostatitis SNOMED Code(s): 3979800 ICD Code: N41.9 - INFLAMMATORY DISEASE OF PROSTATE, UNSPECIFIED Status: Acute Current Visit: Yes Qualifiers: Prostatitis type: acute Qualified Code(s): N41.0 - Acute prostatitis (3) Hematuria syndrome SNOMED Code(s): 59840643 ICD Code: R31.9 - HEMATURIA, UNSPECIFIED Status: Acute Current Visit: Yes (4) UTI, Urinary tract infectious disease SNOMED Code(s): 88422592 ICD Code: N39.0 - URINARY TRACT INFECTION, SITE NOT SPECIFIED Status: Acute Current Visit: Yes (5) HTN (hypertension) SNOMED Code(s): 69662169 ICD Code: I10 - ESSENTIAL (PRIMARY) HYPERTENSION Status: Chronic Current Visit: Yes (6) DM type 2 (diabetes mellitus, type 2) SNOMED Code(s): 35165490 ICD Code: E11.9 - TYPE 2 DIABETES MELLITUS WITHOUT COMPLICATIONS Status: Chronic Current Visit: Yes Qualifiers: Diabetes mellitus termination clerk insulin use: without custodial use Problem List Initiated/Reviewed/Updated: Yes Orders Last 24hrs: Active Orders 24 hr Category Date Time Status Patient Status [ADT] Routine ADT 08/29/20 09:19 Active Antiembolic Devices [RC] PER UNIT ROUTINE Care 08/29/20 12:38 Active Bladder Irrigation [RC] CONTINUOUS Care 08/29/20 12:41 Active Blood Glucose Check, Bedside [RC] TIDAC Care 08/29/20 12:37 Active Insert Garcia Catheter [Insert Urinary Catheter] [OM.PC] Care 08/29/20 07:30 Ordered Q24H Intake and Output [RC] QSHIFT Care 08/29/20 12:38 Active May Shower [RC] ASDIRECTED Care 08/29/20 12:37 Active Oxygen Therapy [RC] PRN Care 08/29/20 12:37 Active Up ad Juli [RC] ASDIRECTED Care 08/29/20 12:37 Active Urinary Catheter Assessment [RC] ASDIRECTED Care 08/29/20 07:24 Active VTE/DVT Education [RC] PER UNIT ROUTINE Care 08/29/20 12:37 Active Vital Signs [RC] Q4H Care 08/29/20 12:37 Active [employer] Diet [DIET] Diet 08/29/20 Lunch Active BASIC METABOLIC PANEL,BMP [CHEM] AM Lab 08/30/20 05:11 Ordered BASIC METABOLIC PANEL,BMP [CHEM] AM Lab 08/31/20 05:11 Ordered BASIC METABOLIC PANEL,BMP [CHEM] AM Lab 09/01/20 05:11 Ordered CBC WITH AUTO DIFF [HEME] AM Lab 08/30/20 05:11 Ordered CBC WITH AUTO DIFF [HEME] AM Lab 08/31/20 05:11 Ordered CBC WITH AUTO DIFF [HEME] AM Lab 09/01/20 05:11 Ordered CULTURE BLOOD [BC] Stat Lab 08/29/20 13:09 Received CULTURE BLOOD [BC] Stat Lab 08/29/20 13:13 Received CULTURE URINE [RM] Stat Lab 08/29/20 07:15 Received MAGNESIUM [CHEM] AM Lab 08/30/20 05:11 Ordered MAGNESIUM [CHEM] AM Lab 08/31/20 05:11 Ordered MAGNESIUM [CHEM] AM Lab 09/01/20 05:11 Ordered Acetaminophen [TylenoL] Med 08/29/20 12:37 Active 650 mg PO Q4H PRN Levofloxacin/Dextrose 5%-Water [Levaquin in D5W 750 MG/ Med 08/29/20 12:45 Active 150 ML] 750 mg Premix Bag 1 bag IV Q24H Ondansetron [Zofran] Med 08/29/20 12:37 Active 4 mg IVPUSH Q4H PRN Sodium Chloride 0.9% [Normal Saline] 1,000 ml Med 08/29/20 12:45 Active IV Q8H Sodium Chloride 0.9% [Saline Flush] Med 08/29/20 12:40 Active 2.5 ml FLUSH ASDIRECTED PRN oxyCODONE Med 08/29/20 12:37 Active 5 mg PO Q4H PRN Blood Culture x2 Reflex Set [OM.PC] Stat Oth 08/29/20 12:39 Ordered Saline Lock Insert [OM.PC] Routine Oth 08/29/20 12:40 Ordered Sequential Compression Device [OM.PC] Per Unit Routine Oth 08/29/20 12:38 Ordered Resuscitation Status Routine Resus Stat 08/29/20 12:37 Ordered Medication Orders Acetaminophen (Tylenol) 650 mg PO Q4H PRN PRN Reason: Pain (Mild 1-3)/fever Levofloxacin/Dextrose 750 mg/ (Premix) 150 mls @ 100 mls/hr IV Q24H [facility] Last Admin: 08/29/20 13:23 Dose: 100 mls/hr Documented by: LYNNETTE Sodium Chloride (Normal Saline) 1,000 mls @ 125 mls/hr IV Q8H [facility] Last Admin: 08/29/20 13:18 Dose: 125 mls/hr Documented by: LYNNETTE Ondansetron HCl (Zofran) 4 mg IVPUSH Q4H PRN PRN Reason: Nausea Oxycodone HCl (Oxycodone) 5 mg PO Q4H PRN PRN Reason: Pain (moderate 4-6) Sodium Chloride (Saline Flush) 2.5 ml FLUSH ASDIRECTED PRN PRN Reason: Keep Vein Open Assessment/Plan Comment:: This 55-year-old male admitted with sepsis secondary to complicated UTI and possible prostatitis 1. Sepsis secondary to complicated UTI and possible prostatitis - Given 1 L fluid bolus in the ER. Blood pressure stable. Tachycardia has reso lved after fluids - Discontinue Rocephin, start Levaquin 750 mg IV daily - We will stop Invokana due to UTI. Did discuss this with the patient as well as patient's PCP which they both agree with. - We will start Flomax for prostatitis and obstructive uropathy - Blood cultures pending as well as urine culture - NS 125 mls/hr overnight 2. Hematuria - Garcia placed in the ER - Continue CBI. Currently off and monitoring urine. - Encouraged on monitoring bladder distention and pain and to notify nurse immediately if this happens - Does say he takes diclofenac 3 times a day for arthritic pain. Could be contributing to increased bleeding. Discussed with him he should try decreasing this and will now be on hold due to bleeding 3. DM type II -Stop Invokana. Hold Januvia -NovoLog sliding scale 3 times daily before meals 4. Hypertension -Monitor blood pressures. -Continue lisinopril VTE prophylaxis: SCDs only due to active bleeding CODE STATUS: Full code Dispo: 2 days - Mortality Measure Prognosis:: Good
[2020-08-29] MEDS ORDERED: Glucagon,Human Recombinant 1 MG Vial IM PRN (14:07)
[2020-08-29] MEDS ORDERED: 50% Dextrose in Water 50 ML Syringe IV PRN (14:07)
[2020-08-29] MEDS: Tamsulosin 0.4 MG Cap.ER PO SCH (15:21)
[2020-08-29] MEDS: LORazepam 0.5 MG Tab PO PRN (16:25)
[2020-08-29] MEDS: Insulin Aspart 100 Units/ML 3 ML Pen SUBCUT SCH (17:50)
[2020-08-29] MEDS: Lisinopril 10 MG Tab PO SCH (20:16)
[2020-08-30] MEDS: LORazepam 0.5 MG Tab PO PRN (01:09)
[2020-08-30] MEDS: Sodium Chloride 0.9% 1,000 ML IV SCH ×2 (06:29→16:40)
[2020-08-30 07:20] LABS: BLOOD UREA NITROGEN,BUN 17 mg/dL (7.0-18.0); CARBON DIOXIDE,CO2 23.7 mmol/L (21.0-32.0); CHLORIDE,CL 106 mmol/L (98-107); GLUCOSE RANDOM 155 mg/dL (74-106); SODIUM,NA 138 mmol/L (136-148)
[2020-08-30] MEDS: Tamsulosin 0.4 MG Cap.ER PO SCH (08:20)
[2020-08-30] MEDS: Lisinopril 10 MG Tab PO SCH ×2 (08:20→20:21)
[2020-08-30] MEDS: Insulin Aspart 100 Units/ML 3 ML Pen SUBCUT SCH ×3 (08:22→16:58)
--- NOTE | 2020-08-30 08:48 | PCM.PN ---
- General Info Date of Service: 08/30/20 Admission Dx/Problem (Free Text): Admission Diagnosis/Problem Admission Diagnosis/Problem Hematuria due to cystitis Subjective Update: Feeling much improved this morning, denies any pain or hematuria this morning. Garcia remains intact. CBI has been off since yesterday afternoon. No chest pain shortness of breath or fevers. Requesting discharge home. Functional Status: Reports: Pain Controlled, Tolerating Diet, Ambulating - Review of Systems General: Reports: No Symptoms. Denies: Weakness, Fatigue HEENT: Reports: No Symptoms. Denies: Headaches, Sore Throat, Rhinitis, Visual Changes Pulmonary: Reports: No Symptoms. Denies: Shortness of Breath Cardiovascular: Reports: No Symptoms. Denies: Chest Pain Gastrointestinal: Reports: No Symptoms. Denies: Abdominal Pain, Nausea, Vomiting Genitourinary: Reports: Other (Discomfort from Agrcia catheter). Denies: Hematuria Musculoskeletal: Reports: No Symptoms. Denies: Neck Pain Skin: Reports: No Symptoms Neurological: Reports: No Symptoms Psychiatric: Reports: No Symptoms - Patient Data Vitals - Most Recent: Last Vital Signs Temp 98.3 F 08/30/20 07:12 Pulse 91 08/30/20 07:12 Resp 16 08/30/20 07:12 BP 130/67 08/30/20 08:20 Pulse Ox 94 L 08/30/20 07:12 Weight - Most Recent: 99.79 kg I&O - Last 24 Hours: Intake & Output 08/29/20 08/30/20 08/30/20 22:59 06:59 14:59 Intake Total 60 2411 Output Total 500 2300 Balance -440 111 Lab Results Last 24 Hours: Laboratory Results - last 24 hr 08/29/20 08/29/20 08/30/20 Range/Units 10:05 17:20 06:06 WBC 17.65 H (4.0-11.0) K/uL RBC 4.66 (4.50-5.90) M/uL Hgb 14.2 (13.0-17.0) g/dL Hct 43.4 (38.0-50.0) % MCV 93.1 (80.0-98.0) fL MCH 30.5 (27.0-32.0) pg MCHC 32.7 (31.0-37.0) g/dL RDW Std Deviation 45.8 (28.0-62.0) fl RDW Coeff of Jose 14 (11.0-15.0) % Plt Count 151 (150-400) K/uL MPV 11.20 (7.40-12.00) fL Neut % (Auto) 79.4 (48.0-80.0) % Lymph % (Auto) 9.7 L (16.0-40.0) % [place] % (Auto) 10.5 (0.0-15.0) % Eos % (Auto) 0.2 (0.0-7.0) % Baso % (Auto) 0.2 (0.0-1.5) % Neut # (Auto) 14.0 H (1.4-5.7) K/uL Lymph # (Auto) 1.7 (0.6-2.4) K/uL [place] # (Auto) 1.9 H (0.0-0.8) K/uL Eos # (Auto) 0.0 (0.0-0.7) K/uL Baso # (Auto) 0.0 (0.0-0.1) K/uL Nucleated RBC % 0.0 /100WBC Nucleated RBCs # 0 K/uL Sodium (136-148) mmol/L Potassium (3.5-5.1) mmol/L Chloride (98-107) mmol/L Carbon Dioxide (21.0-32.0) mmol/L BUN (7.0-18.0) mg/dL Creatinine (0.8-1.3) mg/dL Est Cr Clr Drug Dosing mL/min Estimated GFR (MDRD) ml/min Glucose (74-106) mg/dL POC Glucose 137 H (60-110) mg/dL Calcium (8.5-10.1) mg/dL Magnesium (1.8-2.4) mg/dL SARS-CoV-2 RNA (TIGIST) NEGATIVE (NEGATIVE) 08/30/20 Range/Units 06:06 WBC (4.0-11.0) K/uL RBC (4.50-5.90) M/uL Hgb (13.0-17.0) g/dL Hct (38.0-50.0) % MCV (80.0-98.0) fL MCH (27.0-32.0) pg MCHC (31.0-37.0) g/dL RDW Std Deviation (28.0-62.0) fl RDW Coeff of Jose (11.0-15.0) % Plt Count (150-400) K/uL MPV (7.40-12.00) fL Neut % (Auto) (48.0-80.0) % Lymph % (Auto) (16.0-40.0) % [place] % (Auto) (0.0-15.0) % Eos % (Auto) (0.0-7.0) % Baso % (Auto) (0.0-1.5) % Neut # (Auto) (1.4-5.7) K/uL Lymph # (Auto) (0.6-2.4) K/uL [place] # (Auto) (0.0-0.8) K/uL Eos # (Auto) (0.0-0.7) K/uL Baso # (Auto) (0.0-0.1) K/uL Nucleated RBC % /100WBC Nucleated RBCs # K/uL Sodium 138 (136-148) mmol/L Potassium 4.0 (3.5-5.1) mmol/L Chloride 106 (98-107) mmol/L Carbon Dioxide 23.7 (21.0-32.0) mmol/L BUN 17 (7.0-18.0) mg/dL Creatinine 0.9 (0.8-1.3) mg/dL Est Cr Clr Drug Dosing 105.29 mL/min Estimated GFR (MDRD) > 60.0 ml/min Glucose 155 H (74-106) mg/dL POC Glucose (60-110) mg/dL Calcium 8.7 (8.5-10.1) mg/dL Magnesium 2.0 (1.8-2.4) mg/dL SARS-CoV-2 RNA (TIGIST) (NEGATIVE) Med Orders - Current: Current Medications Acetaminophen (Tylenol) 650 mg PO Q4H PRN PRN Reason: Pain (Mild 1-3)/fever Dextrose/Water (Dextrose 50% In Water) 50 ml IV ASDIRECTED PRN PRN Reason: Hypoglycemia Glucagon (Glucagen) 1 mg IM ASDIRECTED PRN PRN Reason: Hypoglycemia Levofloxacin/Dextrose 750 mg/ (Premix) 150 mls @ 100 mls/hr IV Q24H [facility] Last Admin: 08/29/20 13:23 Dose: 100 mls/hr Documented by: Sodium Chloride (Normal Saline) 1,000 mls @ 125 mls/hr IV Q8H [facility] Last Admin: 08/30/20 06:29 Dose: 125 mls/hr Documented by: Insulin Aspart (Novolog) 0 unit SUBCUT TIDAC [facility]; Protocol Last Admin: 08/30/20 08:22 Dose: 2 units Documented by: Lisinopril (Prinivil) 20 mg PO BID [facility] Last Admin: 08/30/20 08:20 Dose: 20 mg Documented by: Lorazepam (Ativan) 0.5 mg PO Q8H PRN PRN Reason: Anxiety Last Admin: 08/30/20 01:09 Dose: 0.5 mg Documented by: Ondansetron HCl (Zofran) 4 mg IVPUSH Q4H PRN PRN Reason: Nausea Oxycodone HCl (Oxycodone) 5 mg PO Q4H PRN PRN Reason: Pain (moderate 4-6) Sodium Chloride (Saline Flush) 2.5 ml FLUSH ASDIRECTED PRN PRN Reason: Keep Vein Open Tamsulosin HCl (Flomax) 0.4 mg PO PCBREAKFAST [facility] Last Admin: 08/30/20 08:20 Dose: 0.4 mg Documented by: Discontinued Medications Sodium Chloride (Normal Saline) 1,000 mls @ 999 mls/hr IV .Bolus ONE Stop: 08/29/20 08:22 Last Admin: 08/29/20 07:34 Dose: 999 mls/hr Documented by: Ceftriaxone Sodium/Dextrose 1 (gm/ Premix) 50 mls @ 100 mls/hr IV ONETIME ONE Stop: 08/29/20 08:16 Last Admin: 08/29/20 08:22 Dose: 100 mls/hr Documented by: Morphine Sulfate (Morphine) 4 mg IVPUSH ONETIME ONE Stop: 08/29/20 07:23 Last Admin: 08/29/20 07:34 Dose: 4 mg Documented by: Ondansetron HCl (Zofran) 4 mg IVPUSH ONETIME ONE Stop: 08/29/20 07:23 Last Admin: 08/29/20 07:34 Dose: 4 mg Documented by: Sodium Chloride (Saline Flush) 10 ml FLUSH ASDIRECTED PRN PRN Reason: Keep Vein Open Last Admin: 08/29/20 07:34 Dose: 10 ml Documented by: Sodium Chloride (Saline Flush) 2.5 ml FLUSH ASDIRECTED PRN PRN Reason: Keep Vein Open Last Admin: 08/29/20 07:34 Dose: 2.5 ml Documented by: - Exam Quality Assessment: DVT Prophylaxis (SCDs only). No: Supplemental Oxygen General: Alert, Oriented, Cooperative, No Acute Distress Lungs: Clear to Auscultation, Normal Respiratory Effort Cardiovascular: Regular Rate, Regular Rhythm GI/Abdominal Exam: Normal Bowel Sounds, Soft, Non-Tender (Male) Exam: Other (Garcia remains intact no further hematuria noted no rectal pressure or pain). No: Urethral Discharge Extremities: Normal Inspection, Normal Range of Motion, Non-Tender, No Pedal Edema Neurological: No New Focal Deficit Psy/Mental Status: Anxious (Feels very cooped up and does not want to remain in the hospital. Ativan has been helping) Sepsis Event Note - Evaluation Sepsis Screening Result: No Definite Risk - Focused Exam Vital Signs: Vital Signs Temp Pulse Resp BP BP Pulse Ox 08/30/20 08:20 130/67 08/30/20 07:12 98.3 F 91 16 129/73 94 L 08/30/20 04:51 98.5 F 86 16 145/71 H 96 08/30/20 01:00 98.5 F 89 17 140/65 97 - Problem List & Annotations (1) Sepsis SNOMED Code(s): 85835523 Code(s): A41.9 - SEPSIS, UNSPECIFIED ORGANISM Status: Resolved Current Visit: Yes Qualifiers: Sepsis type: sepsis due to unspecified organism Sepsis acute organ dysfunction status: without acute organ dysfunction Qualified Code(s): A41.9 - Sepsis, unspecified organism (2) Prostatitis SNOMED Code(s): 7196568 Code(s): N41.9 - INFLAMMATORY DISEASE OF PROSTATE, UNSPECIFIED Status: Acute Current Visit: Yes Qualifiers: Prostatitis type: acute Qualified Code(s): N41.0 - Acute prostatitis (3) Hematuria syndrome SNOMED Code(s): 57235722 Code(s): R31.9 - HEMATURIA, UNSPECIFIED Status: Acute Current Visit: Yes (4) UTI, Urinary tract infectious disease SNOMED Code(s): 20001226 Code(s): N39.0 - URINARY TRACT INFECTION, SITE NOT SPECIFIED Status: Acute Current Visit: Yes (5) HTN (hypertension) SNOMED Code(s): 25818468 Code(s): I10 - ESSENTIAL (PRIMARY) HYPERTENSION Status: Chronic Current Visit: Yes (6) DM type 2 (diabetes mellitus, type 2) SNOMED Code(s): 23464569 Code(s): E11.9 - TYPE 2 DIABETES MELLITUS WITHOUT COMPLICATIONS Status: Chronic Current Visit: Yes Qualifiers: Diabetes mellitus termite technician insulin use: without custodial use - Problem List Review Problem List Initiated/Reviewed/Updated: Yes - My Orders Last 24 Hours: My Active Orders 08/29/20 Lunch [place] Diet [DIET] 08/29/20 12:37 Blood Glucose Check, Bedside [RC] TIDAC May Shower [RC] ASDIRECTED Oxygen Therapy [RC] PRN Up ad Juli [RC] ASDIRECTED VTE/DVT Education [RC] PER UNIT ROUTINE Vital Signs [RC] Q4H Acetaminophen [TylenoL] 650 mg PO Q4H PRN Ondansetron [Zofran] 4 mg IVPUSH Q4H PRN oxyCODONE 5 mg PO Q4H PRN Resuscitation Status Routine 08/29/20 12:38 Antiembolic Devices [RC] PER UNIT ROUTINE Intake and Output [RC] Q12H Sequential Compression Device [OM.PC] Per Unit Routine 08/29/20 12:39 Blood Culture x2 Reflex Set [OM.PC] Stat 08/29/20 12:40 Sodium Chloride 0.9% [Saline Flush] 2.5 ml FLUSH ASDIRECTED PRN Saline Lock Insert [OM.PC] Routine 08/29/20 12:41 Bladder Irrigation [RC] CONTINUOUS 08/29/20 12:45 Levofloxacin/Dextrose 5%-Water [Levaquin in D5W 750 MG/150 ML] 750 mg Premix Bag 1 bag IV Q24H Sodium Chloride 0.9% [Normal Saline] 1,000 ml IV Q8H 08/29/20 13:09 CULTURE BLOOD [BC] Stat 08/29/20 13:13 CULTURE BLOOD [BC] Stat 08/29/20 14:03 Tamsulosin [Flomax] 0.4 mg PO PCBREAKFAST 08/29/20 14:07 Dextrose 50% in Water 50 ml IV ASDIRECTED PRN Glucagon,Human Recombinant [GlucaGen] 1 mg IM ASDIRECTED PRN 08/29/20 16:13 LORazepam [Ativan] 0.5 mg PO Q8H PRN 08/29/20 17:00 Insulin Aspart [NovoLOG] See Protocol SUBCUT TIDAC 08/29/20 21:00 lisinopriL [Prinivil] 20 mg PO BID 08/30/20 08:18 Communication Order [RC] PRN 08/31/20 05:11 BASIC METABOLIC PANEL,BMP [CHEM] AM CBC WITH AUTO DIFF [HEME] AM MAGNESIUM [CHEM] AM 09/01/20 05:11 BASIC METABOLIC PANEL,BMP [CHEM] AM CBC WITH AUTO DIFF [HEME] AM MAGNESIUM [CHEM] AM - Plan Plan:: This 55-year-old male admitted with sepsis secondary to complicated UTI and possible prostatitis 1. Sepsis secondary to complicated UTI and possible prostatitis - Sepsis resolved, leukocytosis remains elevated but improving. Afebrile overnight - Levaquin 750 mg IV daily - Continue Flomax for prostatitis and obstructive uropathy - Blood cultures pending as well as urine culture - NS 125 mls/hr -Consider removing Garcia catheter today to evaluate ability to urinate per self -Referral to be sent to Dr. Vaca in [place] for urology consultation as outpatient per recommendations from ER yesterday 2. Hematuria - Garcia placed in the ER -Discontinue CBI, has been off since 1400 /, no further hematuria, urine is clear yellow -Discontinue Garcia catheter today check residual voids via bladder scan. 3. DM type II -Stop Invokana. Hold Januvia -NovoLog sliding scale 3 times daily before meals -Blood sugars under 180, well controlled 4. Hypertension -Monitor blood pressures. -Continue lisinopril VTE prophylaxis: SCDs only due to active bleeding CODE STATUS: Full code Dispo: 2 days
[2020-08-30] MEDS: Levofloxacin/Dextrose 5%-Water 750 MG in Premix Bag 1 BAG IV SCH (11:45)
[2020-08-31] MEDS: Sodium Chloride 0.9% 1,000 ML IV SCH (00:43)
[2020-08-31 06:21] LABS: BLOOD UREA NITROGEN,BUN 16 mg/dL (7.0-18.0); CARBON DIOXIDE,CO2 25.6 mmol/L (21.0-32.0); CHLORIDE,CL 103 mmol/L (98-107); GLUCOSE RANDOM 135 mg/dL (74-106); SODIUM,NA 136 mmol/L (136-148)
[2020-08-31] MEDS: Insulin Aspart 100 Units/ML 3 ML Pen SUBCUT SCH (07:18)
[2020-08-31 08:08] VITALS: BP 144/75; PULSE 78
[2020-08-31] MEDS: Tamsulosin 0.4 MG Cap.ER PO SCH (08:10)
[2020-08-31] MEDS: Lisinopril 10 MG Tab PO SCH (08:10)
[2020-08-31] MEDS ORDERED: Levofloxacin 500 MG Tab PO SCH (09:00)
--- NOTE | 2020-08-31 11:29 | PCM.DCSUM1 ---
Discharge Summary - Hospital Course Brief History: This 55-year-old male with past medical history of HTN DM type II presented to the ER with complaints of hematuria that started this morning. He reports that last evening he started having urinary urgency and frequency along with dysuria. He felt like he was waking up quite a bit overnight to urinate but then only urinating a small amount. This morning he felt some worsening burning and had significant hematuria on urination. He also felt as though he had to urinate but was not able to empty completely. He denies any fevers but does report some chills this morning. He reports this is never happened in the past and denies any issues with prostate or urination previously. He denies any rectal pain or pressure. Denies any family history of prostate cancer or prostate issues. He denies any chest pain or shortness of breath no abdominal pain. No diarrhea or constipation. Denies any focal neurologic deficits. Denies any tobacco use no alcohol use and no recreational drug use. In the ER leukocytosis noted at 19,530 BUN slightly elevated at 23 cCr 1.2, glucose elevated at 220. CT abdomen pelvis revealed right-sided nephrolithiasis but no findings of current or recent obstructive uropathy prostate is enlarged no etiology for patient's gross hematuria. He was started on Rocephin and was given normal saline 1 L bolus in ER. Garcia catheter with continuous bladder irrigation was started. UA revealed large blood positive nitrites moderate le ukocyte esterase many RBCs and +1 bacteria. Covid swab was negative. He was slightly tachycardic with heart rates in low 100s blood pressure stable at 120/84 and afebrile. He will be admitted secondary to sepsis and complicated UTI possible prostatitis. PCP, Dr. Ring Diagnosis: Stroke: No - Discharge Data Discharge Date: 08/31/20 Discharge Disposition: Home, Self-Care 01 Condition: Good - Referral to Home Health Primary Care Physician: Perry Ring MD - Discharge Diagnosis/Problem(s) (1) Sepsis SNOMED Code(s): 12618240 ICD Code: A41.9 - SEPSIS, UNSPECIFIED ORGANISM Status: Resolved Qualifiers: Sepsis type: sepsis due to unspecified organism Sepsis acute organ dysfunction status: without acute organ dysfunction Qualified Code(s): A41.9 - Sepsis, unspecified organism (2) Prostatitis SNOMED Code(s): 7386809 ICD Code: N41.9 - INFLAMMATORY DISEASE OF PROSTATE, UNSPECIFIED Status: Acute Qualifiers: Prostatitis type: acute Qualified Code(s): N41.0 - Acute prostatitis (3) Hematuria syndrome SNOMED Code(s): 70292662 ICD Code: R31.9 - HEMATURIA, UNSPECIFIED Status: Acute (4) UTI, Urinary tract infectious disease SNOMED Code(s): 19461827 ICD Code: N39.0 - URINARY TRACT INFECTION, SITE NOT SPECIFIED Status: Acute (5) HTN (hypertension) SNOMED Code(s): 23327066 ICD Code: I10 - ESSENTIAL (PRIMARY) HYPERTENSION Status: Chronic (6) DM type 2 (diabetes mellitus, type 2) SNOMED Code(s): 56491152 ICD Code: E11.9 - TYPE 2 DIABETES MELLITUS WITHOUT COMPLICATIONS Status: Chronic Qualifiers: Diabetes mellitus termite technician insulin use: without termite technician use - Patient Summary/Data Hospital Course: Admission diagnoses Sepsis Complicated UTI Acute prostatitis Obstructive uropathy Hematuria Discharge diagnoses Acute prostatitis Complicated UTI Hematuria resolved Obstructive uropathy resolved sepsis resolved Other PMH HTN DM type II Guy was admitted secondary to new onset hematuria obstructive uropathy and suspected prostatitis with complicated UTI. Garcia catheter was placed in the ER secondary to obstructive uropathy and hematuria. CBI was started and was discontinued later that afternoon. Urine continued to stay clear. Flomax started. Rocephin given in the ER and was discontinued Levaquin started once admitted to [facility]. He was treated with IV fluids. Blood cultures negative urine culture grew out E. coli resistant to ampicillin. Leukocytosis improved from admission, today noted to be 12,000 on admission it was 19,000. He continues to be afebrile. Garcia was removed 08/30, he has been voiding well since, with little residual urine. Today he continues to feel well and is eager for discharge. He will be sent home with Levaquin 500 mg daily for 21 days for acute prostatitis. He was encouraged to slat pickler probiotics and monitor for any diarrhea. I will also send home 1 month of Flomax 0.4 mg daily. He was counseled on discontinuation of Invokana therapy secondary to prostatitis and UTI. Continue Januvia at home. Fasting blood sugars in the hospital have been ranging 130s to 140s will not start any new treatment at this time but he was encouraged to follow-up with PCP in 1 week. Urology appointment made for 1 month. He was counseled to return to the ER or clinic if symptoms return including fever hematuria or inability to urinate. - Patient Instructions Diet: Diabetic Diet Activity: As Tolerated, Rest and Relax Today Showering/Bathing: May Shower Notify Provider of: Fever, Increased Pain, Swelling and Redness, Drainage, Nausea and/or Vomiting Other/Special Instructions: If bloody urine returns or difficulty urinating returns please call Dr Ring or return to ED. - Discharge Plan *PRESCRIPTION DRUG MONITORING PROGRAM REVIEWED*: Not Applicable *COPY OF PRESCRIPTION DRUG MONITORING REPORT IN PATIENT HUMA: Not Applicable Prescriptions/Med Rec: Tamsulosin [Flomax] 0.4 mg PO PCBREAKFAST #30 cap.er Saccharomyces Boulardii [Florastor] 250 mg PO DAILY #1 bottle levoFLOXacin [Levaquin] 500 mg PO Q24H #21 tablet Home Medications: Home Meds Lisinopril [Zestril] 20 mg PO BID 02/20/14 [History] SitaGLIPtin [Januvia] 100 mg PO DAILY 03/23/18 [History] Saccharomyces Boulardii [Florastor] 250 mg PO DAILY #1 bottle 08/31/20 [Rx] Tamsulosin [Flomax] 0.4 mg PO PCBREAKFAST #30 cap.er 08/31/20 [Rx] levoFLOXacin [Levaquin] 500 mg PO Q24H #21 tablet 08/31/20 [Rx] Oxygen Therapy Mode: Room Air Patient Handouts: Urinary Tract Infection, Adult, [id number], Type 2 Diabetes Mellitus, Self Care, Adult, [id number], Prostatitis, Hematuria, Adult Referrals: Tricia Scott DO [Ordering Only Provider] - 10/11/20 3:00 pm Perry Ring MD [Primary Care Provider] - 09/06/20 10:30 am - Discharge Summary/Plan Comment DC Time >30 min.: No - Patient Data Vitals - Most Recent: Last Vital Signs Temp 98 F 08/31/20 08:00 Pulse 78 08/31/20 08:00 Resp 16 08/31/20 08:00 BP 144/75 H 08/31/20 08:10 Pulse Ox 97 08/31/20 08:00 Weight - Most Recent: 99.79 kg I&O - Last 24 hours: Intake & Output 08/30/20 08/31/20 08/31/20 22:59 06:59 14:59 Intake Total 3027 2309 Output Total 2225 1600 Balance 802 709 Lab Results - Last 24 hrs: Laboratory Results - last 24 hr 08/30/20 08/30/20 08/30/20 Range/Units 06:44 11:26 16:56 WBC (4.0-11.0) K/uL RBC (4.50-5.90) M/uL Hgb (13.0-17.0) g/dL Hct (38.0-50.0) % MCV (80.0-98.0) fL MCH (27.0-32.0) pg MCHC (31.0-37.0) g/dL RDW Std Deviation (28.0-62.0) fl RDW Coeff of Jose (11.0-15.0) % Plt Count (150-400) K/uL MPV (7.40-12.00) fL Neut % (Auto) (48.0-80.0) % Lymph % (Auto) (16.0-40.0) % [place] % (Auto) (0.0-15.0) % Eos % (Auto) (0.0-7.0) % Baso % (Auto) (0.0-1.5) % Neut # (Auto) (1.4-5.7) K/uL Lymph # (Auto) (0.6-2.4) K/uL [place] # (Auto) (0.0-0.8) K/uL Eos # (Auto) (0.0-0.7) K/uL Baso # (Auto) (0.0-0.1) K/uL Nucleated RBC % /100WBC Nucleated RBCs # K/uL Sodium (136-148) mmol/L Potassium (3.5-5.1) mmol/L Chloride (98-107) mmol/L Carbon Dioxide (21.0-32.0) mmol/L BUN (7.0-18.0) mg/dL Creatinine (0.8-1.3) mg/dL Est Cr Clr Drug Dosing mL/min Estimated GFR (MDRD) ml/min Glucose (74-106) mg/dL POC Glucose 223 H 146 H 127 H (60-110) mg/dL Calcium (8.5-10.1) mg/dL Magnesium (1.8-2.4) mg/dL 08/31/20 08/31/20 08/31/20 Range/Units 05:54 05:54 06:27 WBC 12.02 H (4.0-11.0) K/uL RBC 4.76 (4.50-5.90) M/uL Hgb 14.5 (13.0-17.0) g/dL Hct 44.5 (38.0-50.0) % MCV 93.5 (80.0-98.0) fL MCH 30.5 (27.0-32.0) pg MCHC 32.6 (31.0-37.0) g/dL RDW Std Deviation 45.2 (28.0-62.0) fl RDW Coeff of Jose 13 (11.0-15.0) % Plt Count 148 L (150-400) K/uL MPV 10.50 (7.40-12.00) fL Neut % (Auto) 75.7 (48.0-80.0) % Lymph % (Auto) 10.4 L (16.0-40.0) % [place] % (Auto) 13.1 (0.0-15.0) % Eos % (Auto) 0.6 (0.0-7.0) % Baso % (Auto) 0.2 (0.0-1.5) % Neut # (Auto) 9.1 H (1.4-5.7) K/uL Lymph # (Auto) 1.3 (0.6-2.4) K/uL [place] # (Auto) 1.6 H (0.0-0.8) K/uL Eos # (Auto) 0.1 (0.0-0.7) K/uL Baso # (Auto) 0.0 (0.0-0.1) K/uL Nucleated RBC % 0.0 /100WBC Nucleated RBCs # 0 K/uL Sodium 136 (136-148) mmol/L Potassium 4.0 (3.5-5.1) mmol/L Chloride 103 (98-107) mmol/L Carbon Dioxide 25.6 (21.0-32.0) mmol/L BUN 16 (7.0-18.0) mg/dL Creatinine 1.0 (0.8-1.3) mg/dL Est Cr Clr Drug Dosing 94.76 mL/min Estimated GFR (MDRD) > 60.0 ml/min Glucose 135 H (74-106) mg/dL POC Glucose 131 H (60-110) mg/dL Calcium 8.5 (8.5-10.1) mg/dL Magnesium 1.9 (1.8-2.4) mg/dL PATRICIA Results - Last 24 hrs: Microbiology 08/29/20 07:15 Urine Culture - Final Urine, Gracia Cath (Indwelling) Escherichia Coli 08/29/20 13:13 Aerobic Blood Culture - Preliminary Blood - Venous - Lab Draw NO GROWTH AFTER 1 DAY Anaerobic Blood Culture - Preliminary NO GROWTH AFTER 1 DAY 08/29/20 13:09 Aerobic Blood Culture - Preliminary Blood - Venous NO GROWTH AFTER 1 DAY Anaerobic Blood Culture - Preliminary NO GROWTH AFTER 1 DAY Med Orders - Current: Current Medications Discontinued Medications Acetaminophen (Tylenol) 650 mg PO Q4H PRN PRN Reason: Pain (Mild 1-3)/fever Dextrose/Water (Dextrose 50% In Water) 50 ml IV ASDIRECTED PRN PRN Reason: Hypoglycemia Glucagon (Glucagen) 1 mg IM ASDIRECTED PRN PRN Reason: Hypoglycemia Sodium Chloride (Normal Saline) 1,000 mls @ 999 mls/hr IV .Bolus ONE Stop: 08/29/20 08:22 Last Admin: 08/29/20 07:34 Dose: 999 mls/hr Documented by: Ceftriaxone Sodium/Dextrose 1 (gm/ Premix) 50 mls @ 100 mls/hr IV ONETIME ONE Stop: 08/29/20 08:16 Last Admin: 08/29/20 08:22 Dose: 100 mls/hr Documented by: Levofloxacin/Dextrose 750 mg/ (Premix) 150 mls @ 100 mls/hr IV Q24H [facility] Last Admin: 08/30/20 11:45 Dose: 100 mls/hr Documented by: Sodium Chloride (Normal Saline) 1,000 mls @ 125 mls/hr IV Q8H [facility] Last Admin: 08/31/20 00:43 Dose: 125 mls/hr Documented by: Insulin Aspart (Novolog) 0 unit SUBCUT TIDAC [facility]; Protocol Last Admin: 08/31/20 07:18 Dose: Not Given Documented by: Levofloxacin (Levaquin) 500 mg PO Q24H [facility] Last Admin: 08/31/20 08:29 Dose: 500 mg Documented by: Lisinopril (Prinivil) 20 mg PO BID [facility] Last Admin: 08/31/20 08:10 Dose: 20 mg Documented by: Lorazepam (Ativan) 0.5 mg PO Q8H PRN PRN Reason: Anxiety Last Admin: 08/30/20 01:09 Dose: 0.5 mg Documented by: Morphine Sulfate (Morphine) 4 mg IVPUSH ONETIME ONE Stop: 08/29/20 07:23 Last Admin: 08/29/20 07:34 Dose: 4 mg Documented by: Ondansetron HCl (Zofran) 4 mg IVPUSH ONETIME ONE Stop: 08/29/20 07:23 Last Admin: 08/29/20 07:34 Dose: 4 mg Documented by: Ondansetron HCl (Zofran) 4 mg IVPUSH Q4H PRN PRN Reason: Nausea Oxycodone HCl (Oxycodone) 5 mg PO Q4H PRN PRN Reason: Pain (moderate 4-6) Sodium Chloride (Saline Flush) 10 ml FLUSH ASDIRECTED PRN PRN Reason: Keep Vein Open Last Admin: 08/29/20 07:34 Dose: 10 ml Documented by: Sodium Chloride (Saline Flush) 2.5 ml FLUSH ASDIRECTED PRN PRN Reason: Keep Vein Open Last Admin: 08/29/20 07:34 Dose: 2.5 ml Documented by: Sodium Chloride (Saline Flush) 2.5 ml FLUSH ASDIRECTED PRN PRN Reason: Keep Vein Open Tamsulosin HCl (Flomax) 0.4 mg PO PCBREAKFAST [facility] Last Admin: 08/31/20 08:10 Dose: 0.4 mg Documented by:
== END 2020-08-31 10:55 | disposition home or self-care (01) ==
LOC: MW.ED 07:06 → MW.MS 12:30
PROVIDERS: ADMIT Student in an Organized Health Care Education/Training Program; ATTEND Student in an Organized Health Care Education/Training Program
DX: A41.9 Sepsis, unspecified organism (principal); R31.9 Hematuria, unspecified; I10 Essential (primary) hypertension; E11.9 Type 2 diabetes mellitus without complications; N41.0 Acute prostatitis; N39.0 Urinary tract infection, site not specified; N13.9 Obstructive and reflux uropathy, unspecified; Z20.828 Contact with and (suspected) exposure to other viral communicable diseases; Z79.899 Other long term (current) drug therapy
CPT/HCPCS: 36415; 51702; 51798; 74176; 80048; 80053; 81001; 82962; 83735; 85025; 87040; 87086; 87088; 87186; 87635; 96365; 96367; 96375; 96376; 99284; A9270; G0378; J0696; J1815; J1956; J2270; J2405; J7030; U0002

== ENCOUNTER 2025-09-19 16:55 | Emergency (ER) | payer BC ==
[2025-09-19] MEDS ORDERED: Sodium Chloride 0.9% 10 ML Syringe FLUSH PRN (16:59)
[2025-09-19] MEDS ORDERED: Sodium Chloride 0.9% 2.5 ML Syringe FLUSH PRN (16:59)
[2025-09-19 17:18] LABS: BASOPHILS ABSOLUTE AUTO 0.05 K/uL (0.00-0.20); BASOPHILS PERCENT AUTO 0.5 % (0.0-1.0); EOSINOPHILS ABSOLUTE AUTO 0.15 K/uL (0.00-0.45); EOSINOPHILS PERCENT AUTO 1.5 % (0.0-6.0); IMMATURE GRAN ABSOLUTE AUTO 0.02 K/uL (0.00-0.05); IMMATURE GRAN PERCENT AUTO 0.2 % (0.0-0.4); LYMPHOCYTES ABSOLUTE AUTO 2.49 K/uL (1.00-4.80); LYMPHOCYTES PERCENT AUTO 25.5 % (24.0-44.0); MEAN PLATELET VOLUME 10.0 fL (9.4-12.4); MONOCYTES ABSOLUTE AUTO 0.94 K/uL (0.00-0.80); MONOCYTES PERCENT AUTO 9.6 % (0.0-8.0); NEUTROPHILS ABSOLUTE AUTO 6.12 K/uL (1.80-7.70); NEUTROPHILS PERCENT AUTO 62.7 % (41.0-71.0); NRBC ABSOLUTE 0.00 K/uL (0.00-0.02); NRBC PERCENT 0.0 /100WBC (0.0-0.2); PLATELET COUNT,PLT 187 K/uL (150-400); RED BLOOD CELL COUNT 5.19 M/uL (4.52-5.90); WHITE BLOOD CELL COUNT,WBC 9.77 K/uL (3.9-11.3)
[2025-09-19 17:32] LABS: INR 1.02 (0.86-1.11); PTT,PARTIAL THROMBOPLSTIN TIME 27.4 SEC (23.9-30.7)
[2025-09-19 17:43] LABS: A/G RATIO 1.4 (0.9-1.6); ALANINE AMINOTRANSFERASE,ALT 49.0 IU/L (14-63); ASPARTATE AMNIOTRANSFERASE,AST 33.0 IU/L (15-37); BILIRUBIN TOTAL 0.8 mg/dL (0.2-1.0); BLOOD UREA NITROGEN,BUN 23.0 mg/dL (7.0-18.0); CARBON DIOXIDE,CO2 23.5 mmol/L (21.0-32.0); CHLORIDE,CL 101.0 mmol/L (98-107); CREATININE 1.3 mg/dL (0.8-1.3); EST CRCL DRUG DOSING (CG) 64.67 mL/min; ESTIMATED GFR 62.0 mL/min (>60); GLUCOSE RANDOM 147.0 mg/dL (74-106); POTASSIUM,K 4.1 mmol/L (3.5-5.1); PROTEIN TOTAL,TP 7.8 g/dL (6.4-8.2); SODIUM,NA 139.0 mmol/L (136-148)
[2025-09-19 19:19] VITALS: BP 157/76; PULSE 81
== END 2025-09-19 19:19 | disposition home or self-care (01) ==
LOC: MW.ED 16:55
DX: R07.89 Other chest pain (principal); I10 Essential (primary) hypertension; E11.9 Type 2 diabetes mellitus without complications; E86.0 Dehydration; Z75.3 Unavailability and inaccessibility of health-care facilities; Z79.899 Other long term (current) drug therapy
CPT/HCPCS: 36415; 71045; 80053; 83690; 83735; 84484; 85025; 85379; 85610; 85730; 93005; 96360; 99285; A9270; J7030; 93010; 99283